=== PATIENT | female | born 1950 | race Caucasian/White ===

== ENCOUNTER → 2019-02-13 | Outpatient (CLI) | payer MEDICARE, OTHER ==
[~2019-02-13] MED LIST: ALIS150T PO; AMIT25 PO; ASPI325 PO; CIPR500 PO; DOC250 PO; DOXA1 PO; DOXA4 PO; EZET10-10 PO; EZET10-40 PO; FURO20 PO; FURO40 PO; HYDACE5 PO; IRBE150 PO; IRBE75 PO; LEVSOD100 PO; Lasix40 MG PO; METO100ER PO; METO50 PO; Prednisone20 MG PO; SPIR25 PO; TECTURNA; TRAM50 PO
[2019-02-13 19:23] LABS: Albumin/Globulin Ratio 0.6 (0.8-1.8); Bilirubin, Total 0.2 mg/dL (0.1-1.0); Bun/Creatinine Ratio 19.2 (12.0-20.0); Calcium, Blood 8.8 mg/dL (8.5-10.1); Creatinine, Blood 1.25 mg/dL (0.40-1.00); Globulin, Blood 4.7 g/dL (2.2-4.0); Potassium, Blood 4.1 mmol/L (3.5-5.5); Total Protein, Blood 7.7 g/dL (6.4-8.2)
== END ==
LOC: LAB SHORT 18:58 → LAB 18:58
DX: E11.9 Type 2 diabetes mellitus without complications (principal)
CPT/HCPCS: 80053

== ENCOUNTER → 2019-07-18 | Outpatient (CLI) | payer MEDICARE, OTHER ==
[2019-07-18 17:37] LABS: Protein, Urine Quantitative 195.8 mg/dL (0.0-11.9)
== END | disposition home or self-care (01) ==
LOC: LAB 15:34 → LAB SHORT 15:34
PROVIDERS: Internal Medicine
DX: N18.3 Chronic kidney disease, stage 3 (moderate) (principal)
CPT/HCPCS: 81050; 84156

== ENCOUNTER 2019-12-07 11:16 | Inpatient (IN) | payer MEDICARE, OTHER ==
[~2019-12-07] VITALS: Ht 154.9 cm; Wt 57.0 kg
[~2019-12-07 11:16] MED LIST changes: -AMIT25 PO; -EZET10-40 PO; -LEVSOD100 PO; -METO100ER PO
[2019-12-07 11:45] LABS: BASOPHILS ABSOLUTE AUTO 0.11 K/mm3 (0.00-0.23); BASOPHILS PERCENT AUTO 1 % (0-2); EOSINOPHILS ABSOLUTE AUTO 0.21 K/mm3 (0.00-0.68); EOSINOPHILS PERCENT AUTO 2 % (0-6); Hematocrit 25.1 % (33.0-51.0); Hemoglobin 7.4 g/dL (11.5-16.0); IMMATURE GRAN ABSOLUTE AUTO 0.06 K/mm3 (0.00-0.10); IMMATURE GRAN PERCENT AUTO 1 % (0-1); LYMPHOCYTES ABSOLUTE AUTO 1.36 K/mm3 (0.84-5.20); LYMPHOCYTES PERCENT AUTO 11 % (21-46); MONOCYTES ABSOLUTE AUTO 1.12 K/mm3 (0.16-1.47); MONOCYTES PERCENT AUTO 9 % (4-13); Mean Corpuscular HGB 23.9 pg (26.0-34.0); Mean Corpuscular HGB Conc 29.5 g/dL (31.5-36.5); Mean Corpuscular Volume 81 fL (80-100); Mean Platelet Volume 10.5 fL (9.1-12.4); NEUTROPHILS ABSOLUTE AUTO 10.15 K/mm3 (1.96-9.15); NEUTROPHILS PERCENT AUTO 78 % (41-73); Platelet Count 331 K/mm3 (150-400); RDW Coefficient Variation 15.9 % (11.7-14.2); RDW Standard Deviation 46.5 fL (35.1-46.3); White Blood Cell Count 13.01 K/mm3 (4.00-11.30)
[2019-12-07 12:10] LABS: Alanine Aminotransfer (ALT/SGP 17 U/L (12-78); Albumin, Blood 3.1 g/dL (3.4-5.0); Albumin/Globulin Ratio 0.7 (0.8-1.8); Alk Phos 89 U/L (50-136); Anion Gap 5 mmol/L (6-16); Aspartate Aminotrans (AST/SGOT 19 U/L (12-37); Bilirubin, Total 0.4 mg/dL (0.1-1.0); Blood Urea Nitrogen 33 mg/dL (8-24); Bun/Creatinine Ratio 19.6 (12.0-20.0); CO2, Blood 27 mmol/L (21-32); Calcium, Blood 9.1 mg/dL (8.5-10.1); Chloride, Blood 105 mmol/L (98-108); Creatinine, Blood 1.68 mg/dL (0.40-1.00); Globulin, Blood 4.7 g/dL (2.2-4.0); Glomerular Filtration Rate 32 (60-); Glucose, Blood 143 mg/dL (70-99); Potassium, Blood 4.2 mmol/L (3.5-5.5); Sodium, Blood 137 mmol/L (136-145); Total Protein, Blood 7.8 g/dL (6.4-8.2); Troponin I <0.015 ng/mL (0.000-0.040)
[2019-12-07] MEDS ORDERED: Prilosec Otc20 MG PO (12:44)
[2019-12-07] MEDS ORDERED: VALSARTAN320 MG PO (12:45)
[2019-12-07] MEDS ORDERED: AMLODIPINE BESYL5 MG PO (12:46)
[2019-12-07] MEDS ORDERED: METO100ER PO (12:46)
[2019-12-07] MEDS ORDERED: Amitriptyline100 MG PO (12:47)
[2019-12-07] MEDS ORDERED: HYDROCODONE-AC1 EAC5 PO (12:48)
[2019-12-07] MEDS ORDERED: LEVSOD100 PO (12:48)
[2019-12-07] MEDS ORDERED: NITROGLYCERIN TOP (12:50)
[2019-12-07] MEDS ORDERED: TORS10 PO (12:57)
[2019-12-07] MEDS ORDERED: EZETIMIBE-SIMV1 EAC4 PO (12:58)
[2019-12-07] MEDS ORDERED: BUPR150ER PO (13:00)
[2019-12-07] MEDS ORDERED: Citalopram HBr20 MG PO (13:01)
[2019-12-07 13:47] LABS: Percent Saturation 4.3 % (15.0-50.0)
[2019-12-07 13:54] LABS: Bilirubin, Direct 0.1 mg/dL (0.0-0.3); Bilirubin, Indirect 0.3 mg/dL (0.1-0.7); Bilirubin, Total 0.4 mg/dL (0.1-1.0)
[2019-12-07 14:59] LABS: PCO2 Arterial 39.8 mmHg (35-45); PO2 Arterial 68.7 mmHg (80-100); pH Blood Arterial 7.42 (7.35-7.45)
--- NOTE | 2019-12-07 17:14 | NUR ---
BIPAP STARTED BY RT. M SERIES PER DR. DIAZ.
--- NOTE | 2019-12-08 05:44 | NUR ---
SHIFT SUMMARY PT A&O X4. VSS. MONITOR SHOWS NSR, HR 60's. SPO2 > 92% ON 2L NC. PT C/O HEADACHE, MEDICATED PER PT REQUEST/EMAR X1 THIS SHIFT W/ PT RELIEF. NO EVENTS OVER NIGHT. WILL CONTINUE TO MONITOR AND PROVIDE CARE UNTIL REPORT OFF TO DAY SHIFT RN.
[2019-12-08 05:46] LABS: BASOPHILS ABSOLUTE AUTO 0.09 K/mm3 (0.00-0.23); BASOPHILS PERCENT AUTO 1 % (0-2); EOSINOPHILS PERCENT AUTO 4 % (0-6); Hematocrit 24.2 % (33.0-51.0); IMMATURE GRAN ABSOLUTE AUTO 0.03 K/mm3 (0.00-0.10); IMMATURE GRAN PERCENT AUTO 0 % (0-1); LYMPHOCYTES ABSOLUTE AUTO 1.65 K/mm3 (0.84-5.20); LYMPHOCYTES PERCENT AUTO 16 % (21-46); MONOCYTES ABSOLUTE AUTO 1.38 K/mm3 (0.16-1.47); MONOCYTES PERCENT AUTO 13 % (4-13); Mean Corpuscular HGB 23.8 pg (26.0-34.0); Mean Corpuscular HGB Conc 28.9 g/dL (31.5-36.5); Mean Corpuscular Volume 82 fL (80-100); Mean Platelet Volume 10.5 fL (9.1-12.4); NEUTROPHILS PERCENT AUTO 66 % (41-73); Platelet Count 294 K/mm3 (150-400); RDW Coefficient Variation 15.9 % (11.7-14.2); RDW Standard Deviation 47.7 fL (35.1-46.3); Red Blood Cell Count 2.94 M/mm3 (3.80-5.20); White Blood Cell Count 10.35 K/mm3 (4.00-11.30)
[2019-12-08 06:10] LABS: Anion Gap 5 mmol/L (6-16); Blood Urea Nitrogen 30 mg/dL (8-24); Bun/Creatinine Ratio 19.6 (12.0-20.0); CO2, Blood 29 mmol/L (21-32); Calcium, Blood 8.8 mg/dL (8.5-10.1); Chloride, Blood 106 mmol/L (98-108); Creatinine, Blood 1.53 mg/dL (0.40-1.00); Glomerular Filtration Rate 36 (60-); Glucose, Blood 90 mg/dL (70-99); Magnesium, Blood 2.5 mg/dL (1.6-2.4); Sodium, Blood 140 mmol/L (136-145)
[2019-12-08 06:12] LABS: Troponin I <0.015 ng/mL (0.000-0.040)
--- NOTE | 2019-12-08 07:31 | NUR ---
ASSUMED CARE AT 0700, REPORT FROM POLO LEON. RESTING IN BED IN LOW FOWLERS, 02 2L NC, NUNEZ CATH IN PLACE DRAINING CLEAR YELLOW URINE. VSS, PLAN OF CARE REVIEWED, WILL CONTINUE TO MONITOR.
[2019-12-08 09:12] LABS: Hemoglobin 7.2 g/dL (11.5-16.0)
[2019-12-08 15:07] LABS: Hematocrit 29.4 % (33.0-51.0); Hemoglobin 8.8 g/dL (11.5-16.0)
--- NOTE | 2019-12-08 18:30 | NUR ---
SHIFT SUMMARY: A/A/OX4 DURING SHIFT. 2L O2 VIA NC WITH CONTINUOUS BIOX. VSS, 1 UNIT PRBC INFUSED TODAY PER ORDERS, TOLERATED WELL. NUNEZ CATH IN PLACE, REPOSITIONED Q2 DURING SHIFT. EXCORATIONS ON BACK AND BUTTOX UNCHANGED FROM PREVIOUS SHIFT. WILL CONTINUE TO MONITOR UNTIL CHANGE OF SHIFT.
[2019-12-09 03:58] LABS: BASOPHILS PERCENT AUTO 1 % (0-2); EOSINOPHILS ABSOLUTE AUTO 0.51 K/mm3 (0.00-0.68); EOSINOPHILS PERCENT AUTO 5 % (0-6); Hematocrit 27.8 % (33.0-51.0); Hemoglobin 8.3 g/dL (11.5-16.0); IMMATURE GRAN ABSOLUTE AUTO 0.03 K/mm3 (0.00-0.10); IMMATURE GRAN PERCENT AUTO 0 % (0-1); LYMPHOCYTES ABSOLUTE AUTO 1.67 K/mm3 (0.84-5.20); LYMPHOCYTES PERCENT AUTO 16 % (21-46); MONOCYTES ABSOLUTE AUTO 1.37 K/mm3 (0.16-1.47); MONOCYTES PERCENT AUTO 13 % (4-13); Mean Corpuscular HGB Conc 29.9 g/dL (31.5-36.5); Mean Corpuscular Volume 84 fL (80-100); Mean Platelet Volume 10.5 fL (9.1-12.4); NEUTROPHILS ABSOLUTE AUTO 6.68 K/mm3 (1.96-9.15); NEUTROPHILS PERCENT AUTO 65 % (41-73); Platelet Count 277 K/mm3 (150-400); RDW Coefficient Variation 16.3 % (11.7-14.2); RDW Standard Deviation 49.4 fL (35.1-46.3); Red Blood Cell Count 3.32 M/mm3 (3.80-5.20); White Blood Cell Count 10.36 K/mm3 (4.00-11.30)
[2019-12-09 04:20] LABS: Bun/Creatinine Ratio 18.4 (12.0-20.0); Calcium, Blood 8.9 mg/dL (8.5-10.1); Creatinine, Blood 1.36 mg/dL (0.40-1.00); Magnesium, Blood 2.2 mg/dL (1.6-2.4); Potassium, Blood 3.7 mmol/L (3.5-5.5)
--- NOTE | 2019-12-09 04:53 | NUR ---
SHIFT SUMMARY Pt with no acute events overnight. VSS. Melo in place, patent and drained 700mls of clear yellow urine. Pt able to be titrated down from 2L NC to RA with oxygen saturations 93-95%. Denies SOB. No use of BIPAP this shift. Pt medicated once for pain with medication per emar. Plan for chest xray this AM and possible discharge. no acute changes from initial shift assessment. will continue to monitor. no acute concerns to communicate this shift.
[2019-12-09 14:19] LABS: Hematocrit 29.8 % (33.0-51.0)
--- NOTE | 2019-12-09 17:28 | NUR ---
SHIFT SUMMARY PT ALERT AND ORIENTED. VS STABLE. HR NSR. BP STABLE. PT INDEPENDENT IN THE ROOM. PLAN FOR PT TO HAVE ANGIOGRAM IN THE AM. PT TO BE NPO AT MIDNIGHT. NUNEZ CATHETER REMOVED THIS SHIFT AND PT HAS VOIDED MULTIPLE TIMES. WILL CONTINUE TO MONITOR AND REPORT TO ONCOMING RN. CALL LIGHT IN REACH.
--- NOTE | 2019-12-10 | NUR ---
NPO AT MIDNIGHT PER ORDERS IN ANTICIPATION FOR ANGIO TODAY
--- NOTE | 2019-12-10 02:02 | NUR ---
While sleeping, pt desaturating into low 80's, then will recover spontaneously within moments. 1 L NC placed d/t desaturation with sleep.
[2019-12-10 03:22] LABS: BASOPHILS ABSOLUTE AUTO 0.12 K/mm3 (0.00-0.23); BASOPHILS PERCENT AUTO 1 % (0-2); EOSINOPHILS ABSOLUTE AUTO 0.57 K/mm3 (0.00-0.68); EOSINOPHILS PERCENT AUTO 6 % (0-6); Hematocrit 29.6 % (33.0-51.0); Hemoglobin 8.8 g/dL (11.5-16.0); IMMATURE GRAN ABSOLUTE AUTO 0.05 K/mm3 (0.00-0.10); IMMATURE GRAN PERCENT AUTO 1 % (0-1); LYMPHOCYTES ABSOLUTE AUTO 1.49 K/mm3 (0.84-5.20); LYMPHOCYTES PERCENT AUTO 15 % (21-46); MONOCYTES ABSOLUTE AUTO 1.24 K/mm3 (0.16-1.47); MONOCYTES PERCENT AUTO 12 % (4-13); Mean Corpuscular HGB 24.7 pg (26.0-34.0); Mean Corpuscular HGB Conc 29.7 g/dL (31.5-36.5); Mean Corpuscular Volume 83 fL (80-100); Mean Platelet Volume 10.1 fL (9.1-12.4); NEUTROPHILS ABSOLUTE AUTO 6.59 K/mm3 (1.96-9.15); NEUTROPHILS PERCENT AUTO 66 % (41-73); NRBC ABSOLUTE 0.02 K/mm3 (0.00-0.02); NRBC Auto 0.2 /100 WBC (0.0-0.2); Platelet Count 284 K/mm3 (150-400); RDW Coefficient Variation 16.6 % (11.7-14.2); RDW Standard Deviation 49.2 fL (35.1-46.3); Red Blood Cell Count 3.56 M/mm3 (3.80-5.20); White Blood Cell Count 10.06 K/mm3 (4.00-11.30)
[2019-12-10 03:40] LABS: Bun/Creatinine Ratio 19.2 (12.0-20.0); Calcium, Blood 8.9 mg/dL (8.5-10.1); Creatinine, Blood 1.25 mg/dL (0.40-1.00); Potassium, Blood 3.8 mmol/L (3.5-5.5)
[2019-12-10 03:41] LABS: BASOPHILS PERCENT MAN 2 % (0-2); EOSINOPHILS PERCENT MAN 8 % (0-6); LYMPHOCYTES PERCENT MAN 13 % (21-46); METAMYELOCYTE PERCENT MAN 1 % (0-0); MONOCYTES PERCENT MAN 12 % (4-13); NEUTROPHILS ABSOLUTE MAN 6.43 K/mm3 (1.96-9.15); SEG NEUTROPHILS PERCENT MAN 64 % (41-73); TOTAL CELLS COUNTED 100
--- NOTE | 2019-12-10 05:17 | NUR ---
SHIFT SUMMARY Plan for possible angio today, pt has been NPO since midnight, no events on tele, VSS. Pt placed on 1L NC overnight for desaturations down ot 82% with spontaneous recovery. Pt mostly saturating at 94-96%. Denies SOB. Ambulating independantly to bathroom for voiding. pt able to express needs with call light, alert and oriented. No acute changes overnight, no changes from initial shift assessment, no concerns to communicate.
--- NOTE | 2019-12-10 08:47 | NUR ---
ASSUMED CARE PT ALERT AND ORIENTED. VS STABLE. O2 SATS REMAIN ABOVE 90% ON 2L NC. HR NSR. PT DENIES ANY PAIN. DR. HENDERSON IN EARLY THIS AM TO CONSENT PT FOR PROCEDURE. PT GIVEN AM MEDICATIONS AND THEN TAKEN TO [facility]. WILL AWAIT RETURN.
[2019-12-10] MEDS ORDERED: METO25 PO (11:27)
[2019-12-10] MEDS ORDERED: ATOR20 PO (11:28)
[2019-12-10] MEDS ORDERED: FURO40 PO (11:28)
[2019-12-10] MEDS ORDERED: FERSU300 PO (11:29)
--- NOTE | 2019-12-10 17:17 | NUR ---
DISCHARGE NOTE PT ALERT AND ORIENTED. VS STABLE. PT DENIES ANY PAIN. RIGHT RADIAL SITE WITH TR BAND REMOVED AND SOME SLIGHT OOZING NOTED AFTER TR BAND REMOVED. ARM ELEVATED ON PILLOW AND TEGADERM PLACED. PT ANXIOUS TO LEAVE BECAUSE SHE STATES HER DOG GOT OUT. PT EDUCATED ON RESTRICTIONS TO RIGHT ARM. PT ENCOURAGED TO STAY FOR MONITORING LONGER DUE TO OOZING AT THE SITE. PT INSISTS ON LEAVING AND STATES SHE WILL NOT STAY. DISCHARGE INSTRUCTIONS PROVIDED. PT EDUCATED ON NEW MEDICATIONS. ALL QUESTIONS ANSWERED. PT TAKEN OUT BY SANDIE.
== END 2019-12-10 17:07 | disposition home or self-care (01) | DRG 286 ==
LOC: ER 11:16 → PCU 13:24
PROVIDERS: Emergency Medicine; Internal Medicine; ADMIT Internal Medicine
PROC: 30233N1 Transfusion of Nonautologous Red Blood Cells into Peripheral Vein, Percutaneous Approach (ICD-10-PCS; 2019-12-08)
PROC: 4A023N8 Measurement of Cardiac Sampling and Pressure, Bilateral, Percutaneous Approach (ICD-10-PCS; principal; 2019-12-10)
PROC: B2111ZZ Fluoroscopy of Multiple Coronary Arteries using Low Osmolar Contrast (ICD-10-PCS; 2019-12-10)
DX: I13.0 Hypertensive heart and chronic kidney disease with heart failure and stage 1 through stage 4 chronic kidney disease, or unspecified chronic kidney disease (principal); I50.31 Acute diastolic (congestive) heart failure; N17.9 Acute kidney failure, unspecified; E11.22 Type 2 diabetes mellitus with diabetic chronic kidney disease; N18.3 Chronic kidney disease, stage 3 (moderate); Z79.4 Long term (current) use of insulin; D63.1 Anemia in chronic kidney disease; E03.9 Hypothyroidism, unspecified; E78.5 Hyperlipidemia, unspecified; F17.210 Nicotine dependence, cigarettes, uncomplicated; D50.9 Iron deficiency anemia, unspecified; I34.0 Nonrheumatic mitral (valve) insufficiency; I25.10 Atherosclerotic heart disease of native coronary artery without angina pectoris
CPT/HCPCS: 36415; 36600; 51702; 71045; 76937; 80048; 80053; 82247; 82248; 82607; 82728; 82746; 82803; 82947; 83010; 83540; 83550; 83615; 83735; 83880; 84443; 84484; 85014; 85018; 85025; 85060; 86850; 86900; 86901; 86923; 93005; 93010; 93460; 94660; 94664; 94667; 94760; 94762; 96374-59; 98960; 99152; 99285-25; A9270; A9270-GY; C1769; C1894; J1644; J1940; J2250; J2916; J3010; J7030; J7050; P9016; Q9967; U0002

== ENCOUNTER → 2020-12-31 | Outpatient (CLI) | payer MEDICARE, OTHER ==
[~2020-12-31] MED LIST changes: +AMLODIPINE BESYL5 MG PO; +ATOR20 PO; +Amitriptyline100 MG PO; +BUPR150ER PO; +Citalopram HBr20 MG PO; +EZETIMIBE-SIMV1 EAC4 PO; +FERSU300 PO; +HYDROCODONE-AC1 EAC5 PO; +LEVSOD100 PO; +METO100ER PO; +METO25 PO; +NITROGLYCERIN TOP; +Prilosec Otc20 MG PO; +TORS10 PO; +VALSARTAN320 MG PO
[2020-12-31 20:46] LABS: Albumin, Blood 3.2 g/dL (3.4-5.0); Albumin/Globulin Ratio 0.7 (0.8-1.8); Bilirubin, Total 0.2 mg/dL (0.1-1.0); Bun/Creatinine Ratio 24.6 (12.0-20.0); Calcium, Blood 8.8 mg/dL (8.5-10.1); Creatinine, Blood 1.75 mg/dL (0.40-1.00); Free Thyroxine 0.81 ng/dL (0.70-1.60); Globulin, Blood 4.7 g/dL (2.2-4.0); Total Protein, Blood 7.9 g/dL (6.4-8.2)
[2020-12-31 20:51] LABS: Thyroid Stimulating Hormone 7.22 uIU/mL (0.360-4.800)
== END | disposition home or self-care (01) ==
LOC: LAB SHORT 19:03 → LAB 19:03
PROVIDERS: Nurse Practitioner
DX: E03.9 Hypothyroidism, unspecified (principal); I10 Essential (primary) hypertension
CPT/HCPCS: 80053; 84439; 84443

== ENCOUNTER 2021-03-15 16:10 | Emergency (ER) | payer MEDICARE, OTHER ==
[~2021-03-15] VITALS: Ht 157.5 cm; Wt 58.5 kg
[2021-03-15 17:05] LABS: BASOPHILS ABSOLUTE AUTO 0.07 K/mm3 (0.00-0.23); BASOPHILS PERCENT AUTO 1 % (0-2); EOSINOPHILS ABSOLUTE AUTO 0.31 K/mm3 (0.00-0.68); EOSINOPHILS PERCENT AUTO 4 % (0-6); Hematocrit 23.9 % (33.0-51.0); Hemoglobin 6.9 g/dL (11.5-16.0); IMMATURE GRAN ABSOLUTE AUTO 0.04 K/mm3 (0.00-0.10); IMMATURE GRAN PERCENT AUTO 1 % (0-1); LYMPHOCYTES ABSOLUTE AUTO 0.99 K/mm3 (0.84-5.20); LYMPHOCYTES PERCENT AUTO 12 % (21-46); MONOCYTES ABSOLUTE AUTO 0.86 K/mm3 (0.16-1.47); MONOCYTES PERCENT AUTO 10 % (4-13); Mean Corpuscular HGB 22.6 pg (26.0-34.0); Mean Corpuscular HGB Conc 28.9 g/dL (31.5-36.5); Mean Corpuscular Volume 78 fL (80-100); NEUTROPHILS ABSOLUTE AUTO 6.22 K/mm3 (1.96-9.15); NEUTROPHILS PERCENT AUTO 73 % (41-73); Platelet Count 237 K/mm3 (150-400); RDW Coefficient Variation 18.2 % (11.7-14.2); RDW Standard Deviation 51.2 fL (35.1-46.3); Red Blood Cell Count 3.05 M/mm3 (3.80-5.20); White Blood Cell Count 8.49 K/mm3 (4.00-11.30)
[2021-03-15 17:24] LABS: Albumin, Blood 2.5 g/dL (3.4-5.0); Albumin/Globulin Ratio 0.5 (0.8-1.8); Bilirubin, Total 0.2 mg/dL (0.1-1.0); Bun/Creatinine Ratio 25.2 (12.0-20.0); Calcium, Blood 8.6 mg/dL (8.5-10.1); Creatinine, Blood 1.39 mg/dL (0.40-1.00); Globulin, Blood 4.7 g/dL (2.2-4.0); Potassium, Blood 4.5 mmol/L (3.5-5.5); Total Protein, Blood 7.2 g/dL (6.4-8.2)
== END 2021-03-15 21:55 | disposition home or self-care (01) ==
LOC: ER 16:10
PROVIDERS: Physician Assistant
DX: D50.9 Iron deficiency anemia, unspecified (principal); I13.0 Hypertensive heart and chronic kidney disease with heart failure and stage 1 through stage 4 chronic kidney disease, or unspecified chronic kidney disease; E11.22 Type 2 diabetes mellitus with diabetic chronic kidney disease; I50.9 Heart failure, unspecified; N18.30 Chronic kidney disease, stage 3 unspecified; I27.20 Pulmonary hypertension, unspecified; E03.9 Hypothyroidism, unspecified; E78.5 Hyperlipidemia, unspecified; Z79.899 Other long term (current) drug therapy
CPT/HCPCS: 36415; 80053; 83540; 83550; 85025; 86850; 86900; 86901; 86923; 99283; J7030; P9016

== ENCOUNTER → 2021-04-08 | Outpatient (CLI) | payer MEDICARE, OTHER ==
[~2021-04-08] MED LIST changes: +CEPH500 PO
[2021-04-08 11:53] LABS: BASOPHILS ABSOLUTE AUTO 0.11 K/mm3 (0.00-0.23); BASOPHILS PERCENT AUTO 1 % (0-2); EOSINOPHILS ABSOLUTE AUTO 0.19 K/mm3 (0.00-0.68); EOSINOPHILS PERCENT AUTO 2 % (0-6); Hematocrit 26.2 % (33.0-51.0); Hemoglobin 7.9 g/dL (11.5-16.0); IMMATURE GRAN ABSOLUTE AUTO 0.02 K/mm3 (0.00-0.10); IMMATURE GRAN PERCENT AUTO 0 % (0-1); LYMPHOCYTES PERCENT AUTO 9 % (21-46); MONOCYTES ABSOLUTE AUTO 0.76 K/mm3 (0.16-1.47); MONOCYTES PERCENT AUTO 9 % (4-13); Mean Corpuscular HGB 23.9 pg (26.0-34.0); Mean Corpuscular HGB Conc 30.2 g/dL (31.5-36.5); Mean Corpuscular Volume 79 fL (80-100); Mean Platelet Volume 10.2 fL (9.1-12.4); NEUTROPHILS PERCENT AUTO 78 % (41-73); Platelet Count 234 K/mm3 (150-400); RDW Coefficient Variation 19.7 % (11.7-14.2); Red Blood Cell Count 3.31 M/mm3 (3.80-5.20); White Blood Cell Count 8.48 K/mm3 (4.00-11.30)
[2021-04-08 12:03] LABS: Bun/Creatinine Ratio 22.7 (12.0-20.0); Creatinine, Blood 1.72 mg/dL (0.40-1.00); Potassium, Blood 4.5 mmol/L (3.5-5.5)
== END | disposition home or self-care (01) ==
LOC: LAB SHORT 11:43 → LAB 11:43
PROVIDERS: Nurse Practitioner Family
DX: D64.9 Anemia, unspecified (principal); R73.03 Prediabetes
CPT/HCPCS: 80048; 83036; 85025

== ENCOUNTER 2021-07-21 14:52 | Day surgery (SDC) | payer MEDICARE, OTHER | END 2021-07-22 02:27 | disposition home or self-care (01) | LOC: WOUND 14:52 | DX: S61.401A Unspecified open wound of right hand, initial encounter (principal); L98.492 Non-pressure chronic ulcer of skin of other sites with fat layer exposed; F17.210 Nicotine dependence, cigarettes, uncomplicated; I48.91 Unspecified atrial fibrillation; I50.9 Heart failure, unspecified; I25.10 Atherosclerotic heart disease of native coronary artery without angina pectoris; N18.6 End stage renal disease; X58.XXXA Exposure to other specified factors, initial encounter; Z95.2 Presence of prosthetic heart valve; Z95.0 Presence of cardiac pacemaker | CPT/HCPCS: A9270; G0463 ==

== ENCOUNTER 2021-07-28 00:44 | Day surgery (SDC) | payer MEDICARE, OTHER | END 2021-07-28 23:36 | disposition home or self-care (01) | LOC: WOUND 00:44 | DX: S61.401A Unspecified open wound of right hand, initial encounter (principal); X58.XXXA Exposure to other specified factors, initial encounter | CPT/HCPCS: 11102 ==

== ENCOUNTER 2021-08-03 13:25 | Day surgery (SDC) | payer MEDICARE, OTHER | END 2021-08-03 22:39 | disposition home or self-care (01) | LOC: WOUND 13:25 | DX: S61.401A Unspecified open wound of right hand, initial encounter (principal); D50.9 Iron deficiency anemia, unspecified; R77.0 Abnormality of albumin; R63.4 Abnormal weight loss; X58.XXXA Exposure to other specified factors, initial encounter | CPT/HCPCS: G0463 ==

== ENCOUNTER 2021-08-17 00:19 | Day surgery (SDC) | payer MEDICARE, OTHER | END 2021-08-17 22:58 | disposition home or self-care (01) | LOC: WOUND 00:19 | DX: S61.401A Unspecified open wound of right hand, initial encounter (principal); S61.402A Unspecified open wound of left hand, initial encounter; L08.9 Local infection of the skin and subcutaneous tissue, unspecified; D50.9 Iron deficiency anemia, unspecified; R77.0 Abnormality of albumin; R63.4 Abnormal weight loss; Z68.21 Body mass index [BMI] 21.0-21.9, adult | CPT/HCPCS: A9270; G0463 ==

== ENCOUNTER 2021-08-27 00:41 | Day surgery (SDC) | payer MEDICARE, OTHER | END 2021-08-27 23:59 | disposition home or self-care (01) | LOC: WOUND 00:41 | DX: S61.401A Unspecified open wound of right hand, initial encounter (principal); S61.402A Unspecified open wound of left hand, initial encounter; D50.9 Iron deficiency anemia, unspecified; R63.4 Abnormal weight loss; R77.0 Abnormality of albumin; Z68.21 Body mass index [BMI] 21.0-21.9, adult; X58.XXXA Exposure to other specified factors, initial encounter | CPT/HCPCS: A9270; G0463 ==

== ENCOUNTER 2021-09-03 02:41 | Day surgery (SDC) | payer MEDICARE, OTHER | END 2021-09-03 23:30 | disposition home or self-care (01) | LOC: WOUND 02:41 | DX: S61.401A Unspecified open wound of right hand, initial encounter (principal); S61.402A Unspecified open wound of left hand, initial encounter; D50.9 Iron deficiency anemia, unspecified; R77.0 Abnormality of albumin; R63.4 Abnormal weight loss | CPT/HCPCS: A9270; G0463 ==

== ENCOUNTER → 2021-09-15 | Outpatient (CLI) | payer MEDICARE, OTHER ==
[2021-09-16 08:52] LABS: BASOPHILS ABSOLUTE AUTO 0.12 K/mm3 (0.00-0.23); BASOPHILS PERCENT AUTO 1 % (0-2); EOSINOPHILS ABSOLUTE AUTO 0.48 K/mm3 (0.00-0.68); EOSINOPHILS PERCENT AUTO 5 % (0-6); Hematocrit 24.4 % (33.0-51.0); Hemoglobin 6.8 g/dL (11.5-16.0); IMMATURE GRAN ABSOLUTE AUTO 0.04 K/mm3 (0.00-0.10); IMMATURE GRAN PERCENT AUTO 0 % (0-1); LYMPHOCYTES ABSOLUTE AUTO 1.54 K/mm3 (0.84-5.20); LYMPHOCYTES PERCENT AUTO 15 % (21-46); MONOCYTES PERCENT AUTO 9 % (4-13); Mean Corpuscular HGB 26.9 pg (26.0-34.0); Mean Corpuscular HGB Conc 27.9 g/dL (31.5-36.5); Mean Corpuscular Volume 96 fL (80-100); NEUTROPHILS ABSOLUTE AUTO 7.39 K/mm3 (1.96-9.15); NEUTROPHILS PERCENT AUTO 71 % (41-73); Platelet Count 392 K/mm3 (150-400); RDW Coefficient Variation 15.9 % (11.7-14.2); Red Blood Cell Count 2.53 M/mm3 (3.80-5.20); White Blood Cell Count 10.47 K/mm3 (4.00-11.30)
[2021-09-16 09:12] LABS: Albumin, Blood 2.8 g/dL (3.4-5.0); Albumin/Globulin Ratio 0.6 (0.8-1.8); Bilirubin, Total 0.1 mg/dL (0.1-1.0); Bun/Creatinine Ratio 30.3 (12.0-20.0); Calcium, Blood 8.9 mg/dL (8.5-10.1); Creatinine, Blood 1.52 mg/dL (0.40-1.00); Free Thyroxine 1.01 ng/dL (0.70-1.60); Globulin, Blood 4.7 g/dL (2.2-4.0); Potassium, Blood 4.9 mmol/L (3.5-5.5); Thyroid Stimulating Hormone 4.78 uIU/mL (0.360-4.800); Total Protein, Blood 7.5 g/dL (6.4-8.2)
[2021-09-17 07:11] LABS: HIV AB/P24 AG SCREEN Non Reactive (Non Reactive)
== END | disposition home or self-care (01) ==
LOC: LAB SHORT 19:30 → LAB 19:30
PROVIDERS: Nurse Practitioner
DX: Z11.4 Encounter for screening for human immunodeficiency virus [HIV] (principal); R53.1 Weakness; D50.9 Iron deficiency anemia, unspecified; R63.4 Abnormal weight loss; R53.83 Other fatigue
CPT/HCPCS: 80053; 84439; 84443; 85025; 85651; 87389

== ENCOUNTER 2021-09-17 19:40 | Emergency (ER) | payer MEDICARE, OTHER ==
[~2021-09-17] VITALS: Ht 157.5 cm; Wt 47.6 kg
[2021-09-17 20:45] LABS: Calcium, Ionized (POC) 1.23 mmol/L (1.10-1.46); Chloride (POC) 111 mmol/L (98-108); Creatinine (POC) 1.5 mg/dL (0.6-1.0); Glucose (ISTAT POC) 84 mg/dL (70-99); Hemoglobin (POC) 7.8 g/dL (12.0-16.0); Potassium (POC) 4.6 mmol/L (3.5-5.5); Sodium (POC) 143 mmol/L (135-148); Total CO2 (POC) 22 mmol/L (21-32)
== END 2021-09-17 21:00 | disposition home or self-care (01) ==
LOC: ER 19:40
PROVIDERS: Emergency Medicine
DX: T18.128A Food in esophagus causing other injury, initial encounter (principal); D64.9 Anemia, unspecified; I13.0 Hypertensive heart and chronic kidney disease with heart failure and stage 1 through stage 4 chronic kidney disease, or unspecified chronic kidney disease; E11.22 Type 2 diabetes mellitus with diabetic chronic kidney disease; N18.30 Chronic kidney disease, stage 3 unspecified; I50.30 Unspecified diastolic (congestive) heart failure; E78.5 Hyperlipidemia, unspecified; E03.9 Hypothyroidism, unspecified; F17.210 Nicotine dependence, cigarettes, uncomplicated
CPT/HCPCS: 80047; 85014; 96374; 96375; 99283-25; J1610; J2405; J3010

== ENCOUNTER 2021-11-08 09:05 | Day surgery (SDC) | payer MEDICARE, OTHER ==
[~2021-11-08] VITALS: Ht 157.5 cm; Wt 46.6 kg
--- NOTE | 2021-11-08 11:47 | NUR ---
11/08/21 Kadi Ireland LATE ENTRY PATIENT SLOW TO WAKE. WILL CONTIUNE RECOVERY IN PTS PRE-OP ROOM.
--- NOTE | 2021-11-08 11:49 | NUR ---
11/08/21 1149 Kadi Flores PT CONTINUES TO SLEEP, DOES NOT RESPOND TO VOICE. VSS. WILL CONTINUE TO MONITOR.
== END 2021-11-08 12:34 | disposition home or self-care (01) ==
LOC: ORSCSDS 09:05 → ORD 10:00 → ORSCMMR 10:00 → ORSCSDS 10:00
PROVIDERS: Internal Medicine Gastroenterology
PROC: 0DB98ZX Excision of Duodenum, Via Natural or Artificial Opening Endoscopic, Diagnostic (ICD-10-PCS; principal; 2021-11-08 10:00)
PROC: 0DBK8ZX Excision of Ascending Colon, Via Natural or Artificial Opening Endoscopic, Diagnostic (ICD-10-PCS; principal; 2021-11-08 10:00)
PROC: 0DB78ZX Excision of Stomach, Pylorus, Via Natural or Artificial Opening Endoscopic, Diagnostic (ICD-10-PCS; principal; 2021-11-08 10:00)
DX: K62.5 Hemorrhage of anus and rectum (principal); R13.14 Dysphagia, pharyngoesophageal phase; D46.4 Refractory anemia, unspecified; D12.2 Benign neoplasm of ascending colon; K21.9 Gastro-esophageal reflux disease without esophagitis; K29.70 Gastritis, unspecified, without bleeding; K57.30 Diverticulosis of large intestine without perforation or abscess without bleeding; F17.210 Nicotine dependence, cigarettes, uncomplicated; I10 Essential (primary) hypertension; E11.22 Type 2 diabetes mellitus with diabetic chronic kidney disease; N18.30 Chronic kidney disease, stage 3 unspecified; E03.9 Hypothyroidism, unspecified; E78.5 Hyperlipidemia, unspecified; I48.91 Unspecified atrial fibrillation; I50.9 Heart failure, unspecified; Z79.899 Other long term (current) drug therapy
CPT/HCPCS: 88305; 88341; 88342; A9270; J2250; J2405; J3010; J7120

== ENCOUNTER 2021-12-13 16:14 | Inpatient (IN) | payer MEDICARE, OTHER ==
[~2021-12-13] VITALS: Ht 157.5 cm; Wt 45.1 kg
[2021-12-13 17:14] LABS: BASOPHILS ABSOLUTE AUTO 0.09 K/mm3 (0.00-0.23); BASOPHILS PERCENT AUTO 1 % (0-2); EOSINOPHILS ABSOLUTE AUTO 0.28 K/mm3 (0.00-0.68); EOSINOPHILS PERCENT AUTO 3 % (0-6); Hematocrit 20.9 % (33.0-51.0); Hemoglobin 6.7 g/dL (11.5-16.0); IMMATURE GRAN ABSOLUTE AUTO 0.03 K/mm3 (0.00-0.10); IMMATURE GRAN PERCENT AUTO 0 % (0-1); LYMPHOCYTES ABSOLUTE AUTO 0.81 K/mm3 (0.84-5.20); LYMPHOCYTES PERCENT AUTO 10 % (21-46); MONOCYTES ABSOLUTE AUTO 0.71 K/mm3 (0.16-1.47); MONOCYTES PERCENT AUTO 9 % (4-13); Mean Corpuscular HGB 27.7 pg (26.0-34.0); Mean Corpuscular HGB Conc 32.1 g/dL (31.5-36.5); Mean Corpuscular Volume 86 fL (80-100); Mean Platelet Volume 9.2 fL (9.1-12.4); NEUTROPHILS ABSOLUTE AUTO 6.22 K/mm3 (1.96-9.15); NEUTROPHILS PERCENT AUTO 76 % (41-73); Platelet Count 248 K/mm3 (150-400); RDW Standard Deviation 47.7 fL (35.1-46.3); Red Blood Cell Count 2.42 M/mm3 (3.80-5.20); White Blood Cell Count 8.14 K/mm3 (4.00-11.30)
[2021-12-13 17:38] LABS: Albumin, Blood 2.4 g/dL (3.4-5.0); Albumin/Globulin Ratio 0.5 (0.8-1.8); Bilirubin, Total 0.1 mg/dL (0.1-1.0); Bun/Creatinine Ratio 28.6 (12.0-20.0); Calcium, Blood 8.8 mg/dL (8.5-10.1); Creatinine, Blood 3.85 mg/dL (0.40-1.00); Potassium, Blood 6.4 mmol/L (3.5-5.5); Total Protein, Blood 7.4 g/dL (6.4-8.2)
--- NOTE | 2021-12-14 01:23 | NUR ---
CARE ASSUMPTION: PATIENT ARRIVED BY GURHALIMA WITH BLOOD PRODUCT INFUSING. PATIENT WALKED TO TOILET WITH STANDBY ASSIST. PATIENT DENIES SOB, CHEST PAIN, OR DIZZINESS. VS WNL ON RA. SKIN C/D/I. DAUGHTER DANIEL AT BEDSIDE IS HEALTHCARE PROXY AND CONTACT INFO ON BOARD. PATIENT'S MAIN COMPLAINT IS THE SORES ON HER MIDDLE KNUCKLE ON EACH HAND. PATIENT DENIES HX OF DIABETES. ADMISSION HX AND MED RECONCILIATION IS COMPLETE. BED LOW WITH CALL LIGHT IN REACH.
[2021-12-14 04:27] LABS: Hemoglobin 7.9 g/dL (11.5-16.0); Mean Corpuscular HGB 27.4 pg (26.0-34.0); Mean Corpuscular HGB Conc 31.6 g/dL (31.5-36.5); Mean Corpuscular Volume 87 fL (80-100); Mean Platelet Volume 9.3 fL (9.1-12.4); Platelet Count 221 K/mm3 (150-400); RDW Coefficient Variation 15.2 % (11.7-14.2); RDW Standard Deviation 48.8 fL (35.1-46.3); Red Blood Cell Count 2.88 M/mm3 (3.80-5.20); White Blood Cell Count 6.91 K/mm3 (4.00-11.30)
[2021-12-14 04:50] LABS: Bun/Creatinine Ratio 30.8 (12.0-20.0); Calcium, Blood 9.1 mg/dL (8.5-10.1); Creatinine, Blood 3.44 mg/dL (0.40-1.00)
--- NOTE | 2021-12-14 05:17 | NUR ---
CRITICAL VALUE NOTIFICATION: POTASSIUM 6.[address] PAYNE NOTIFIED AND NEW ORDERS RECEIVED. NO CHANGE IN PATIENT AFFECT.
--- NOTE | 2021-12-14 06:15 | NUR ---
SHIFT SUMMARY: PATIENT VSS T/O NIGHT, NO SOB OR CHEST PAIN. PACER PACING AT 60 BPM. ELEVATED POTASSIUM THIS AM WITH NEW ORDERS RECEIVED - MEDICATING PER EMAR. PATIENT'S MAIN COMPLAINT CONTINUES TO BE HER HANDS THAT ARE "A MYSTERY" NO ONE HAS BEEN ABLE TO IDENTIFY WHY SHE HAS THE PAINS SHE HAS. HGB UP TO 7.9 FROM 6.7 AFTER 1 UNIT PRBCS. PATIENT RESTING IN BED WITH IV MEDICATIONS INFUSING. BED LOW WITH CALL LIGHT IN REACH. WILL CONTINUE TO MONITOR AND REPORT TO ONCOMING RN.
[2021-12-14 10:21] LABS: Calcium, Blood 9.4 mg/dL (8.5-10.1); Creatinine, Blood 3.26 mg/dL (0.40-1.00); Potassium, Blood 5.2 mmol/L (3.5-5.5)
--- NOTE | 2021-12-14 13:00 | NUR ---
Call to Dr. Barron to clarify H & H orders, and also to ask if the 1000 blood draw could be used in place of the requested 1200 pm H&H order.
[2021-12-14 15:18] LABS: Bun/Creatinine Ratio 31.1 (12.0-20.0); Creatinine, Blood 3.09 mg/dL (0.40-1.00)
--- NOTE | 2021-12-14 16:24 | NUR ---
Assisted back to bed from recliner, at her request. States that her "butt is so bony" that it is sore after sitting up in the chair. She is still receiving IV infusion, and needs assistance to avoid tangling or accidentally dislodging her IV. Declined offer to assist her to the bathroom at this time.
--- NOTE | 2021-12-14 20:30 | NUR ---
CARE ASSUMPTION: PATIENT RESTING IN BED. DISCONNECTED LR INFUSION IT HAD COMPLETED. PATIENT'S HANDS STILL CAUSING DISCOMFORT, BUT LESS SWOLLEN THAN EARLIER. VSS WNL FOR PATIENT ON RA. BED LOW WITH CALL LIGHT IN REACH.
--- NOTE | 2021-12-15 01:54 | NUR ---
CALL TO MD RE: PATIENT'S PAIN MEDICATION. NEW ORDERS ENTERED. WILL MEDICATE PER EMAR AND EDUCATE PATIENT ON NEW PAIN MEDICATIONS THAT DIFFER FROM PATIENT REQUEST/HOME USE.
[2021-12-15 05:02] LABS: Hematocrit 23.9 % (33.0-51.0); Hemoglobin 7.8 g/dL (11.5-16.0)
[2021-12-15 05:26] LABS: Thyroid Stimulating Hormone 2.96 uIU/mL (0.360-4.800)
[2021-12-15 05:43] LABS: Bun/Creatinine Ratio 33.6 (12.0-20.0); Calcium, Blood 8.8 mg/dL (8.5-10.1); Creatinine, Blood 2.8 mg/dL (0.40-1.00)
--- NOTE | 2021-12-15 07:59 | NUR ---
0730 Blood sugar check qas 65. Pt was given yogurt, and coffee with cream.
--- NOTE | 2021-12-15 10:05 | NUR ---
Ambulatory to the bathroom to void. IVF started, and pt had sponge bath while sitting up in chair, at the sink, independently. She is now sitting up in recliner.
--- NOTE | 2021-12-15 15:07 | NUR ---
GIVEN a sandwich and cheese, per her request.
--- NOTE | 2021-12-15 16:08 | NUR ---
Pt ate a snack at 1500, stated that she didn't really like her lunch. CBG at this time 78. Ambulatory to the bathroom without assistance to void. ANURAG sanchez placed on her legs.
[2021-12-15 16:48] LABS: Bun/Creatinine Ratio 36.2 (12.0-20.0); Calcium, Blood 8.8 mg/dL (8.5-10.1); Creatinine, Blood 2.43 mg/dL (0.40-1.00); Potassium, Blood 5.4 mmol/L (3.5-5.5)
--- NOTE | 2021-12-15 17:16 | NUR ---
Pt has been alert, oriented, and cheerful today. Independently ambulatory to the bathroom when not attached to IV pump. Appetite has been fair. Blood sugars low all day until this afternoon. She has been eating small snacks throughout the day, and asymptomatic with her low blood sugar. SHe has difficulty eating because of lack of appetite, but denies any nausea or abdominal discomfort. She had more hand pain today, and had relief after receiving one [place] tablet this afternoon.
--- NOTE | 2021-12-16 04:15 | NUR ---
SHIFT SUMMARY PT RESTED WELL THROUGH THE NIGHT. ALERT AND ORIENTED, ABLE TO MAKE NEEDS KNOWN. COOPERATIVE [facility] PLAN OF CARE. SATS >95% ON ROOM AIR. NO TELE STATUS, NO C/O CHEST PAIN. CBG 119 AND 72 THORUGHOUT NIGHT. SNACKS AND BEVERAGES GIVEN. ALL VSS. C/O PAIN IN BILATERAL HANDS - SEE EMAR. VOIDING INDEPENDENTLY IN ROOM. NO OTHER NEEDS AT THIS TIME. CALL LIGHT WITHIN REACH, BED IN LOWEST POSITION. WILL CONTINUE TO MONITOR.
[2021-12-16 05:23] LABS: Hematocrit 23.1 % (33.0-51.0); Hemoglobin 7.4 g/dL (11.5-16.0)
[2021-12-16 05:46] LABS: Bun/Creatinine Ratio 35.6 (12.0-20.0); Calcium, Blood 8.7 mg/dL (8.5-10.1); Creatinine, Blood 2.39 mg/dL (0.40-1.00); Potassium, Blood 5.2 mmol/L (3.5-5.5)
--- NOTE | 2021-12-16 07:23 | NUR ---
States that she slept well last night. States she is having a little bit of pain in her hands, but not too bad. Declines any pain medication at this time. Blood sugars have not bee low last night, per noc shift report. This morning her CBG is 71.
== END 2021-12-16 14:30 | disposition home or self-care (01) | DRG 683 ==
LOC: ER 16:14 → PCU 22:06 → ER 12-14 00:16 → PCU 12-15 10:20
PROVIDERS: Family Medicine; Physician Assistant; ADMIT Internal Medicine
PROC: 30233N1 Transfusion of Nonautologous Red Blood Cells into Peripheral Vein, Percutaneous Approach (ICD-10-PCS; principal; 2021-12-13)
DX: N17.9 Acute kidney failure, unspecified (principal); E44.0 Moderate protein-calorie malnutrition; E87.1 Hypo-osmolality and hyponatremia; I13.0 Hypertensive heart and chronic kidney disease with heart failure and stage 1 through stage 4 chronic kidney disease, or unspecified chronic kidney disease; I50.32 Chronic diastolic (congestive) heart failure; Z68.1 Body mass index [BMI] 19.9 or less, adult; E87.5 Hyperkalemia; N18.32 Chronic kidney disease, stage 3b; E11.22 Type 2 diabetes mellitus with diabetic chronic kidney disease; D63.1 Anemia in chronic kidney disease; E78.5 Hyperlipidemia, unspecified; K29.70 Gastritis, unspecified, without bleeding; K57.30 Diverticulosis of large intestine without perforation or abscess without bleeding; E03.9 Hypothyroidism, unspecified; I34.0 Nonrheumatic mitral (valve) insufficiency; E11.649 Type 2 diabetes mellitus with hypoglycemia without coma; Z87.891 Personal history of nicotine dependence; Z95.4 Presence of other heart-valve replacement; Z98.890 Other specified postprocedural states; Z79.899 Other long term (current) drug therapy
CPT/HCPCS: 36415; 36430; 71045; 80048; 80053; 82947; 83690; 84132; 84443; 85014; 85018; 85025; 85027; 86850; 86900; 86901; 86923; 93005; 93010; 94644; 94664; 94760; 94762; 96365; 96366; 97116; 97162; 97166; 97535; 99285-25; A9270; J0610; J1815; J7030; J7060; J7120; J7799; P9016

== ENCOUNTER → 2021-12-22 | Outpatient (CLI) | payer MEDICARE, OTHER ==
[2021-12-22 15:52] LABS: Bun/Creatinine Ratio 28.1 (12.0-20.0); Creatinine, Blood 1.85 mg/dL (0.40-1.00); Potassium, Blood 4.6 mmol/L (3.5-5.5)
== END ==
LOC: LAB SHORT 15:27
PROVIDERS: Family Medicine
DX: N17.9 Acute kidney failure, unspecified (principal)
CPT/HCPCS: 80048

== ENCOUNTER → 2022-01-25 | Outpatient (CLI) | payer MEDICARE, OTHER | END | disposition home or self-care (01) | LOC: LAB 16:22 → LAB SHORT 16:22 | DX: S61.401S Unspecified open wound of right hand, sequela (principal); S61.402S Unspecified open wound of left hand, sequela | CPT/HCPCS: 87070; 87075; 87077; 87147; 87186; 87205 ==

== ENCOUNTER → 2022-02-09 | Outpatient (CLI) | payer MEDICARE, OTHER ==
[2022-02-09 18:56] LABS: BASOPHILS ABSOLUTE AUTO 0.08 K/mm3 (0.00-0.23); BASOPHILS PERCENT AUTO 1 % (0-2); EOSINOPHILS ABSOLUTE AUTO 0.22 K/mm3 (0.00-0.68); EOSINOPHILS PERCENT AUTO 3 % (0-6); Hemoglobin 7.3 g/dL (11.5-16.0); IMMATURE GRAN ABSOLUTE AUTO 0.03 K/mm3 (0.00-0.10); IMMATURE GRAN PERCENT AUTO 0 % (0-1); LYMPHOCYTES ABSOLUTE AUTO 0.69 K/mm3 (0.84-5.20); LYMPHOCYTES PERCENT AUTO 8 % (21-46); MONOCYTES ABSOLUTE AUTO 0.63 K/mm3 (0.16-1.47); MONOCYTES PERCENT AUTO 8 % (4-13); Mean Corpuscular HGB 28.4 pg (26.0-34.0); Mean Corpuscular HGB Conc 31.7 g/dL (31.5-36.5); Mean Corpuscular Volume 90 fL (80-100); NEUTROPHILS ABSOLUTE AUTO 6.78 K/mm3 (1.96-9.15); NEUTROPHILS PERCENT AUTO 80 % (41-73); Platelet Count 335 K/mm3 (150-400); RDW Coefficient Variation 18.4 % (11.7-14.2); RDW Standard Deviation 59.7 fL (35.1-46.3); Red Blood Cell Count 2.57 M/mm3 (3.80-5.20); White Blood Cell Count 8.43 K/mm3 (4.00-11.30)
[2022-02-09 19:31] LABS: Albumin, Blood 2.6 g/dL (3.4-5.0); Albumin/Globulin Ratio 0.5 (0.8-1.8); Bilirubin, Total 0.3 mg/dL (0.1-1.0); Bun/Creatinine Ratio 33.3 (12.0-20.0); Calcium, Blood 9.3 mg/dL (8.5-10.1); Creatinine, Blood 1.89 mg/dL (0.40-1.00); Potassium, Blood 4.6 mmol/L (3.5-5.5); Total Protein, Blood 7.6 g/dL (6.4-8.2)
== END | disposition home or self-care (01) ==
LOC: LAB SHORT 14:50
PROVIDERS: Internal Medicine Rheumatology
DX: R76.8 Other specified abnormal immunological findings in serum (principal)
CPT/HCPCS: 80053; 85025; 85651

== ENCOUNTER → 2022-02-16 | Outpatient (CLI) | payer MEDICARE, OTHER ==
[~2022-02-16] MED LIST changes: +Norco 7.5-3251 EACH PO
== END | disposition home or self-care (01) ==
LOC: LAB SHORT 15:30 → LAB 15:30
DX: R74.01 Elevation of levels of liver transaminase levels (principal)

== ENCOUNTER 2022-03-18 10:07 | Emergency (ER) | payer MEDICARE, OTHER ==
[~2022-03-18] VITALS: Ht 157.5 cm; Wt 47.6 kg
[~2022-03-18 10:07] MED LIST changes: -Norco 7.5-3251 EACH PO
[2022-03-18 11:26] LABS: BASOPHILS ABSOLUTE AUTO 0.05 K/mm3 (0.00-0.23); BASOPHILS PERCENT AUTO 1 % (0-2); EOSINOPHILS ABSOLUTE AUTO 0.09 K/mm3 (0.00-0.68); EOSINOPHILS PERCENT AUTO 1 % (0-6); Hematocrit 22.1 % (33.0-51.0); Hemoglobin 6.6 g/dL (11.5-16.0); IMMATURE GRAN ABSOLUTE AUTO 0.05 K/mm3 (0.00-0.10); IMMATURE GRAN PERCENT AUTO 1 % (0-1); LYMPHOCYTES ABSOLUTE AUTO 0.52 K/mm3 (0.84-5.20); LYMPHOCYTES PERCENT AUTO 6 % (21-46); MONOCYTES ABSOLUTE AUTO 0.52 K/mm3 (0.16-1.47); MONOCYTES PERCENT AUTO 6 % (4-13); Mean Corpuscular HGB 27.4 pg (26.0-34.0); Mean Corpuscular HGB Conc 29.9 g/dL (31.5-36.5); Mean Corpuscular Volume 92 fL (80-100); Mean Platelet Volume 10.1 fL (9.1-12.4); NEUTROPHILS ABSOLUTE AUTO 8.15 K/mm3 (1.96-9.15); NEUTROPHILS PERCENT AUTO 87 % (41-73); Platelet Count 275 K/mm3 (150-400); RDW Coefficient Variation 16.2 % (11.7-14.2); Red Blood Cell Count 2.41 M/mm3 (3.80-5.20); White Blood Cell Count 9.38 K/mm3 (4.00-11.30)
[2022-03-18 11:36] LABS: Albumin, Blood 2.4 g/dL (3.4-5.0); Albumin/Globulin Ratio 0.5 (0.8-1.8); Bilirubin, Total 0.3 mg/dL (0.1-1.0); Bun/Creatinine Ratio 24.3 (12.0-20.0); Calcium, Blood 8.6 mg/dL (8.5-10.1); Creatinine, Blood 2.43 mg/dL (0.40-1.00); Globulin, Blood 4.7 g/dL (2.2-4.0); Potassium, Blood 5.7 mmol/L (3.5-5.5); Total Protein, Blood 7.1 g/dL (6.4-8.2)
[2022-03-18] MEDS ORDERED: Norco 7.5-3251 EACH PO (12:35)
== END 2022-03-18 13:42 | disposition home or self-care (01) ==
LOC: ER 10:07
PROVIDERS: Physician Assistant
DX: F11.23 Opioid dependence with withdrawal (principal); D64.9 Anemia, unspecified; I13.0 Hypertensive heart and chronic kidney disease with heart failure and stage 1 through stage 4 chronic kidney disease, or unspecified chronic kidney disease; E11.22 Type 2 diabetes mellitus with diabetic chronic kidney disease; N18.30 Chronic kidney disease, stage 3 unspecified; I50.30 Unspecified diastolic (congestive) heart failure; E78.5 Hyperlipidemia, unspecified; E03.9 Hypothyroidism, unspecified; F17.210 Nicotine dependence, cigarettes, uncomplicated; Z79.899 Other long term (current) drug therapy; Z95.0 Presence of cardiac pacemaker
CPT/HCPCS: 36415; 80053; 85025; 93005; 93010; A9270

== ENCOUNTER 2022-03-24 15:10 | Inpatient (IN) | payer MEDICARE, OTHER ==
[~2022-03-24] VITALS: Ht 157.5 cm; Wt 49.4 kg
[~2022-03-24 15:10] MED LIST changes: +Norco 7.5-3251 EACH PO
[2022-03-24 16:10] LABS: BASOPHILS ABSOLUTE AUTO 0.05 K/mm3 (0.00-0.23); BASOPHILS PERCENT AUTO 1 % (0-2); EOSINOPHILS ABSOLUTE AUTO 0.11 K/mm3 (0.00-0.68); EOSINOPHILS PERCENT AUTO 1 % (0-6); Hematocrit 24.5 % (33.0-51.0); Hemoglobin 7.5 g/dL (11.5-16.0); IMMATURE GRAN ABSOLUTE AUTO 0.04 K/mm3 (0.00-0.10); IMMATURE GRAN PERCENT AUTO 1 % (0-1); LYMPHOCYTES ABSOLUTE AUTO 0.49 K/mm3 (0.84-5.20); LYMPHOCYTES PERCENT AUTO 6 % (21-46); MONOCYTES ABSOLUTE AUTO 0.83 K/mm3 (0.16-1.47); MONOCYTES PERCENT AUTO 10 % (4-13); Mean Corpuscular HGB 27.4 pg (26.0-34.0); Mean Corpuscular HGB Conc 30.6 g/dL (31.5-36.5); Mean Corpuscular Volume 89 fL (80-100); Mean Platelet Volume 10.3 fL (9.1-12.4); NEUTROPHILS ABSOLUTE AUTO 7.17 K/mm3 (1.96-9.15); NEUTROPHILS PERCENT AUTO 82 % (41-73); Platelet Count 273 K/mm3 (150-400); RDW Coefficient Variation 15.9 % (11.7-14.2); RDW Standard Deviation 51.9 fL (35.1-46.3); Red Blood Cell Count 2.74 M/mm3 (3.80-5.20); White Blood Cell Count 8.69 K/mm3 (4.00-11.30)
[2022-03-24 16:28] LABS: Albumin, Blood 2.4 g/dL (3.4-5.0); Albumin/Globulin Ratio 0.5 (0.8-1.8); Bilirubin, Total 0.3 mg/dL (0.1-1.0); Bun/Creatinine Ratio 24.3 (12.0-20.0); Calcium, Blood 9.2 mg/dL (8.5-10.1); Creatinine, Blood 3.62 mg/dL (0.40-1.00); Globulin, Blood 4.8 g/dL (2.2-4.0); Potassium, Blood 6.6 mmol/L (3.5-5.5); Total Protein, Blood 7.2 g/dL (6.4-8.2)
[2022-03-24 21:15] LABS: Source, Urine Clean Catch
[2022-03-24 21:17] LABS: Appearance, Urine Hazy (Clear); Blood, Urine 1+ (Neg); Color, Urine Yellow (P-Yellow); Glucose Qualitative, Urine Neg (Neg); Ketones, Urine Neg (Neg); Leukocyte Esterase, Urine 3+ (Neg); Nitrite, Urine Neg (Neg); Protein, Urine 3+ (Neg); Specific Gravity, Urine 1.025 (1.003-1.022); Urobilinogen, Urine 1+ (Normal)
[2022-03-24 21:27] LABS: Bilirubin, Urine 1+ (Neg)
[2022-03-24 21:28] LABS: Albumin, Blood 2.3 g/dL (3.4-5.0); Anion Gap 6 mmol/L (6-16); Blood Urea Nitrogen 86 mg/dL (8-24); Bun/Creatinine Ratio 24.4 (12.0-20.0); CO2, Blood 21 mmol/L (21-32); Chloride, Blood 110 mmol/L (98-108); Creatinine, Blood 3.52 mg/dL (0.40-1.00); Glomerular Filtration Rate 13 (60-); Glucose, Blood 51 mg/dL (70-99); Phosphorus, Blood 5.6 mg/dL (2.5-4.9); Potassium, Blood 5.9 mmol/L (3.5-5.5); Sodium, Blood 137 mmol/L (136-145)
[2022-03-24 21:28] LABS: Amorphous Light (0-Heavy); Bacteria Many /hpf; Red Blood Cells, Urine 0-2 /hpf (0-2); Squamous Epithelial Cells Few /hpf (Few); White Blood Cells, Urine 25-50 /hpf (0-5)
[2022-03-25 00:37] LABS: Bun/Creatinine Ratio 25.5 (12.0-20.0); Calcium, Blood 9.4 mg/dL (8.5-10.1); Creatinine, Blood 3.49 mg/dL (0.40-1.00); Potassium, Blood 5.7 mmol/L (3.5-5.5)
--- NOTE | 2022-03-25 05:28 | NUR ---
SHIFT SUMMARY ER ADMIT. ARRIVAL TO PCU AT 2044. PT ALERT AND ORIENTED X4. 60'S PACED HR. ON 1L NC THROUGHOUT THE NIGHT SATS OVER 98%. AFEBRILE. BP HYPERTENSIVE ON ARRIVAL, SYSTOLIC 150'S W/ PO MEDICATION AND PRN HYDRALAZINE. BLOOD SUGARS LOW THROUGHOUT THE NIGHT. CBG OF 114 AT 0512. POTASSIUM 6.6 IN ER, 5.7 AFTER CALCIUM GLUCONATE X2. CHRONIC PAIN IN HANDS, RELIEVED WITH HYDROCODONE. IN BED SLEEPING WITH CALL ALARM AT SIDE, WILL CONITNUE TO MONITOR UNTIL REPORT GIVEN TO ONCOMING RN
[2022-03-25 06:07] LABS: BASOPHILS ABSOLUTE AUTO 0.06 K/mm3 (0.00-0.23); BASOPHILS PERCENT AUTO 1 % (0-2); EOSINOPHILS ABSOLUTE AUTO 0.13 K/mm3 (0.00-0.68); EOSINOPHILS PERCENT AUTO 2 % (0-6); Hematocrit 21.5 % (33.0-51.0); Hemoglobin 6.7 g/dL (11.5-16.0); IMMATURE GRAN ABSOLUTE AUTO 0.03 K/mm3 (0.00-0.10); IMMATURE GRAN PERCENT AUTO 0 % (0-1); LYMPHOCYTES PERCENT AUTO 7 % (21-46); MONOCYTES ABSOLUTE AUTO 0.66 K/mm3 (0.16-1.47); MONOCYTES PERCENT AUTO 9 % (4-13); Mean Corpuscular HGB 27.8 pg (26.0-34.0); Mean Corpuscular HGB Conc 31.2 g/dL (31.5-36.5); Mean Corpuscular Volume 89 fL (80-100); Mean Platelet Volume 10.5 fL (9.1-12.4); NEUTROPHILS ABSOLUTE AUTO 5.66 K/mm3 (1.96-9.15); NEUTROPHILS PERCENT AUTO 80 % (41-73); Platelet Count 202 K/mm3 (150-400); RDW Coefficient Variation 15.9 % (11.7-14.2); RDW Standard Deviation 51.4 fL (35.1-46.3); Red Blood Cell Count 2.41 M/mm3 (3.80-5.20); White Blood Cell Count 7.04 K/mm3 (4.00-11.30)
[2022-03-25 06:29] LABS: Albumin, Blood 2.1 g/dL (3.4-5.0); Anion Gap 5 mmol/L (6-16); Blood Urea Nitrogen 89 mg/dL (8-24); Bun/Creatinine Ratio 26.3 (12.0-20.0); CO2, Blood 21 mmol/L (21-32); Calcium, Blood 8.8 mg/dL (8.5-10.1); Chloride, Blood 110 mmol/L (98-108); Creatinine, Blood 3.39 mg/dL (0.40-1.00); Glomerular Filtration Rate 14 (60-); Glucose, Blood 83 mg/dL (70-99); Phosphorus, Blood 5.2 mg/dL (2.5-4.9); Potassium, Blood 5.9 mmol/L (3.5-5.5); Sodium, Blood 136 mmol/L (136-145)
--- NOTE | 2022-03-25 09:25 | NUR ---
ASSUMED CARE OF PT AT 0700 THIS AM. FSBS NOTED TO BE 36, DR DOWNING AT BEDSIDE, NOTIFIED OF CRITICAL VALUE. AMP OF D50 GIVEN AND ORDERS FOR 5% GTT RECEIVED. PT IS RECEIVING BLOOD TRANSFUSION AT THIS TIME AND TOLERATING WELL. CALL LIGHT IN REACH, WILL CONTINUE TO MONITOR.
[2022-03-25 11:09] LABS: Glucose, Blood 68 mg/dL (70-99)
[2022-03-25 12:13] LABS: Bun/Creatinine Ratio 25.6 (12.0-20.0); Creatinine, Blood 3.52 mg/dL (0.40-1.00); Potassium, Blood 5.6 mmol/L (3.5-5.5)
[2022-03-25 12:17] LABS: Free Thyroxine 0.68 ng/dL (0.70-1.60)
[2022-03-25 12:19] LABS: Triiodothyronine, Free 0.61 pg/mL (2.18-3.98)
[2022-03-25 15:10] LABS: Bun/Creatinine Ratio 25.7 (12.0-20.0); Calcium, Blood 8.1 mg/dL (8.5-10.1); Creatinine, Blood 3.35 mg/dL (0.40-1.00); Potassium, Blood 5.7 mmol/L (3.5-5.5)
--- NOTE | 2022-03-25 15:20 | NUR ---
DR FREIRE CONTACTED WITH PT'S GLUCOSE LEVEL OF 58. NEW ORDERS RECEIVED.
--- NOTE | 2022-03-25 18:02 | NUR ---
PT'S FSBS HAVE REMAINED LOW T/O THE SHIFT ON D5 GTT 150ML/HR. LAST FSBS 69, PT AWAKE AND ALERT, ASYMPTOMATIC. PT REPORTED TO MECHANICAL DRAWING TEACHER THAT SHE HAS HAD SWALLOWING ISSUES PRIOR TO ADMISSION, PT NOW NPO FOR SWALLOW EVAL. 1 UNIT PRBCs TRANSFUSED PER MD ORDERS, PT TOLERATED WELL, NO S/SX OF REACTION NOTED. PLAN OVERNIGHT FOR BMP Q 4 HRS AND FSBS Q1 UNTIL STABILIZED. SEE DOCUMENTED VS AND ASSESSMENT, FSBS APPEARS TO BE TRENDING UP, PT IS MAKING URINE. PT ABLE TO USE CALL LIGHT FOR NEEDS, CALL LIGHT IN REACH, WILL CONTINUE TO MONITOR AND GIVE REPORT TO NOC SHIFT RN.
[2022-03-25 18:59] LABS: Bun/Creatinine Ratio 25.5 (12.0-20.0); Creatinine, Blood 3.29 mg/dL (0.40-1.00); Potassium, Blood 5.5 mmol/L (3.5-5.5)
[2022-03-25 23:00] LABS: Bun/Creatinine Ratio 25.9 (12.0-20.0); Calcium, Blood 7.9 mg/dL (8.5-10.1); Creatinine, Blood 3.21 mg/dL (0.40-1.00); Potassium, Blood 5.3 mmol/L (3.5-5.5)
[2022-03-26 04:22] LABS: BASOPHILS ABSOLUTE AUTO 0.06 K/mm3 (0.00-0.23); BASOPHILS PERCENT AUTO 1 % (0-2); EOSINOPHILS PERCENT AUTO 3 % (0-6); Hematocrit 28.2 % (33.0-51.0); Hemoglobin 8.8 g/dL (11.5-16.0); IMMATURE GRAN ABSOLUTE AUTO 0.04 K/mm3 (0.00-0.10); IMMATURE GRAN PERCENT AUTO 1 % (0-1); LYMPHOCYTES ABSOLUTE AUTO 0.35 K/mm3 (0.84-5.20); LYMPHOCYTES PERCENT AUTO 5 % (21-46); MONOCYTES ABSOLUTE AUTO 0.56 K/mm3 (0.16-1.47); MONOCYTES PERCENT AUTO 9 % (4-13); Mean Corpuscular HGB 27.8 pg (26.0-34.0); Mean Corpuscular HGB Conc 31.2 g/dL (31.5-36.5); Mean Corpuscular Volume 89 fL (80-100); Mean Platelet Volume 10.6 fL (9.1-12.4); NEUTROPHILS ABSOLUTE AUTO 5.34 K/mm3 (1.96-9.15); NEUTROPHILS PERCENT AUTO 82 % (41-73); Platelet Count 188 K/mm3 (150-400); RDW Coefficient Variation 15.7 % (11.7-14.2); Red Blood Cell Count 3.17 M/mm3 (3.80-5.20); White Blood Cell Count 6.55 K/mm3 (4.00-11.30)
[2022-03-26 04:43] LABS: Bun/Creatinine Ratio 26.8 (12.0-20.0); Creatinine, Blood 2.99 mg/dL (0.40-1.00); Magnesium, Blood 1.5 mg/dL (1.6-2.4); Phosphorus, Blood 3.8 mg/dL (2.5-4.9)
--- NOTE | 2022-03-26 05:25 | NUR ---
SHIFT SUMMARY: PT. REMAINED STABLE OVERNIGHT, BG LEVELS WERE LOW AT BEGINNING OF SHIFT SO FLUIDS WERE SWITCHED OUT FROM D5 TO D10 AND PT. HAS HOVERED AROUND 100 EACH CHECK SINCE THE FLUIDS WERE CHANGED. PT. HAS BEEN NSR THROUGHOUT THE NIGHT AND BP HAS BEEN STABLE AND WNL. PT.'S ONLY COMPLAINTS OVERNIGHT WERE RELATED TO PAIN IN HER HANDS WHICH WAS MEDICATED PER EMAR. PT. IS RESTING IN BED COMFORTABLY WITH NO COMPLAINTS AT THIS TIME.
[2022-03-26 07:45] LABS: Bun/Creatinine Ratio 25.8 (12.0-20.0); Calcium, Blood 7.8 mg/dL (8.5-10.1); Creatinine, Blood 2.99 mg/dL (0.40-1.00)
[2022-03-26 12:35] LABS: Bun/Creatinine Ratio 25.2 (12.0-20.0); Calcium, Blood 8.2 mg/dL (8.5-10.1); Creatinine, Blood 2.94 mg/dL (0.40-1.00); Potassium, Blood 4.7 mmol/L (3.5-5.5)
[2022-03-26 16:23] LABS: Bun/Creatinine Ratio 26.5 (12.0-20.0); Calcium, Blood 8.3 mg/dL (8.5-10.1); Creatinine, Blood 2.87 mg/dL (0.40-1.00); Potassium, Blood 4.7 mmol/L (3.5-5.5)
--- NOTE | 2022-03-26 17:57 | NUR ---
PT CONTINUES ON D10 GTT WITH BLOOD SUGARS CONSISTENTLY >100, PT'S MENTATION APPEARS TO BE BETTER THAN YESTERDAY, PT IS MORE AWAKE, ALERT AND TALKATIVE. RIGO LOPEZ PERFORMED THIS AM AND DR BRANDON Mary CARDIOLOGY NOTIFIED. NO YANELIS PLANNED AT THIS TIME. PT IS ALLWOED TO EAT, CONTINUE MONITORING LABS CLOSELY. MAG REPLACED THIS SHIFT. TURN Q 2, PT IS ABLE TO USE CALL LIGHT FOR NEEDS, WILL CONTINUE TO MONITOR AND GIVE REPORT TO NOC SHIFT RN.
--- NOTE | 2022-03-26 23:30 | NUR ---
CALL TO HOSPITALIST RESIDENT DR. LEIGH. PATIENT COMPLAINING OF LOWER ABDOMINAL PAIN AND URGE TO URINATE. PALPATED ABDOMEN AND BLADDER APPEARED TO BE DISTENDED. BLADDER SCAN REVEALED RETENTION OF 523 mL IN THE BLADDER. ORDER RECEIVED FOR PLACEMENT OF NUNEZ CATHETER FOR URINE RETENTION.
[2022-03-27 00:16] LABS: Source, Urine Foley catheter
[2022-03-27 00:19] LABS: Bilirubin, Urine Neg (Neg); Blood, Urine 3+ (Neg); Glucose Qualitative, Urine Neg (Neg); Ketones, Urine Neg (Neg); Leukocyte Esterase, Urine 3+ (Neg); Nitrite, Urine Neg (Neg); Protein, Urine 2+ (Neg); Urobilinogen, Urine NORM (Normal)
[2022-03-27 00:28] LABS: Appearance, Urine Hazy (Clear); Color, Urine Yellow (P-Yellow)
[2022-03-27 00:29] LABS: Red Blood Cells, Urine 0-2 /hpf (0-2); Squamous Epithelial Cells Few /hpf (Few); White Blood Cells, Urine TNTC /hpf (0-5)
[2022-03-27 00:30] LABS: Bacteria Mod /hpf
--- NOTE | 2022-03-27 03:00 | NUR ---
CALL TO HOSPITALIST RESIDENT DR. JAVIER REGARDING PATIENT COMPLAINT OF UPPER ADBDOMINAL PAIN. PT REPORTS 10/10 PAIN, LUQ TO MID-UPPER ABDOMEN / EPIGASTRIC REGION, DESCRIBES IT A CONSTANT ACHE. DENIES BURNING OR STABBING PAIN. PAIN DID NOT LESSEN WITH NORCO 5-325 NOR WITH REPOSITIONING. ORDER RECEIVED FOR IV FAMOTIDINE.
[2022-03-27 03:12] LABS: BASOPHILS ABSOLUTE AUTO 0.02 K/mm3 (0.00-0.23); BASOPHILS PERCENT AUTO 0 % (0-2); EOSINOPHILS ABSOLUTE AUTO 0.03 K/mm3 (0.00-0.68); EOSINOPHILS PERCENT AUTO 0 % (0-6); Hemoglobin 8.2 g/dL (11.5-16.0); IMMATURE GRAN ABSOLUTE AUTO 0.06 K/mm3 (0.00-0.10); IMMATURE GRAN PERCENT AUTO 1 % (0-1); LYMPHOCYTES ABSOLUTE AUTO 0.18 K/mm3 (0.84-5.20); LYMPHOCYTES PERCENT AUTO 2 % (21-46); MONOCYTES ABSOLUTE AUTO 0.75 K/mm3 (0.16-1.47); MONOCYTES PERCENT AUTO 6 % (4-13); Mean Corpuscular HGB 28.2 pg (26.0-34.0); Mean Corpuscular HGB Conc 32.8 g/dL (31.5-36.5); Mean Corpuscular Volume 86 fL (80-100); Mean Platelet Volume 10.9 fL (9.1-12.4); NEUTROPHILS ABSOLUTE AUTO 10.87 K/mm3 (1.96-9.15); NEUTROPHILS PERCENT AUTO 91 % (41-73); Platelet Count 181 K/mm3 (150-400); RDW Coefficient Variation 15.6 % (11.7-14.2); RDW Standard Deviation 49.3 fL (35.1-46.3); Red Blood Cell Count 2.91 M/mm3 (3.80-5.20); White Blood Cell Count 11.91 K/mm3 (4.00-11.30)
[2022-03-27 03:27] LABS: Bun/Creatinine Ratio 27.2 (12.0-20.0); Calcium, Blood 7.8 mg/dL (8.5-10.1); Creatinine, Blood 2.61 mg/dL (0.40-1.00); Magnesium, Blood 1.7 mg/dL (1.6-2.4); Potassium, Blood 4.3 mmol/L (3.5-5.5)
--- NOTE | 2022-03-27 10:21 | NUR ---
ASSUMED CARE OF PT AT 0700 THIS AM. PT C/O MID EPIGASTRIC PAIN AND NAUSEA THIS AM. DR DIAZ AT BEDSIDE TO EVALUATE. PT MEDICATED WITH ZOFRAN PRIOR TO GIVING PO MEDS FOR NAUSEA. PT UNABLE TO TOLERATE WATER OR PO MEDICATIONS, IMMEDIATELY VOMITED THEM BACK UP. DR DIAZ NOTIFIED, NEW ORDERS RECEIVED.
--- NOTE | 2022-03-27 12:21 | NUR ---
NEW ORDERS NOTED. REPORT GIVEN TO LIZ TO ASSUME CARE.
--- NOTE | 2022-03-27 17:09 | NUR ---
Recevied call from Dr Smart. Discussed case and concerns. Pt appears to have developed cardiac vegetation, new development of pancreatitis, would benefit from GI specialist but none available for our hospital. Pt not appropirately responding to questions and stating "I don't know". Arrived to Pt's room and is A&OX2. Reviewed plan of care with Pt including recommendations to transfer to another hospital. Pt states "I don't know". When asked about wishes for CPR and Intubation Pt initially states that she does not want CPR or intubation then states "I don't know". Pt agreeable for this RN to call her daughter to assist with decisions. Called and spoke with Pt's daughter Romi. Provided update and reviewed plan of care. Daughter reports Pt would be agreeable with transfer. Discussed Pt's wishes for CPR and Intubation. Romi reports Pt's are DNR. Continued supportive conversation and answered questions. Placed DNR in [facility] per V/O from Dr Smart. Palliative Care will remain available.
--- NOTE | 2022-03-27 18:47 | NUR ---
PT SUMMARY: TRANSFER OF CARE SINCE 1229 REPORT RECEIVED FROM KYLIE CUELLAR. DR DIAZ WAS NOTIFIED PT KEEPS C/O OF ABD PAIN AND ABD CT SCAN RESULT TO BE REVIEWED. PT HAD 1 EMESIS FOR THE SHIFT AFTER PO METOPROLOL WAS GIVEN PT BLOOD PRESSURE STAYED ABOVE 160'S, IV FENTANYL WAS GIVEN ONCE FOR PAIN BP SYTOLIC WENT DOWN TO 140'S THEN CAME BACK UP AGAIN TO 160'S SO ADDITIONAL IV HYDRALAZINE WAS GIVEN. DR DIAZ DISCUSSED WITH THE PT THE NEED FOR COBRA TRANSFER PT DOESNT SEEM TO UNDERSTAND OR COMPREHEND WHATS GOING ON UNABLE TO ANSWER QUESTIONS CAN ONLY ANSWER CLOSE ENDED QUESTIONS. JIMENEZ FROM PALLIATIVE CARE CAME TO SEE PT WELL, PT WAS THE SAME NOT REALLY ANSWERING MUCH QUESTIONS, DAUGHTER WAS CALLED AND WAS GIVEN UPDATED REGARDING PT'S CURRENT STATUS WHICH ALSO AGREED TO SWITCH PT TO DNR STATUS AND ALSO AGREED TO GET PT [place]. PT NOW AWAITNG FOR BED TO EITHER [facility]. DR CORREA WAS CONSULTED ORDERED ONCE TIME DOSE OF LASIX FOR ASCITES/EDEMA. PT HAS DISTENDED ABD THAT IS TENDER TO PALPATE ALSO PT'S ORBITAL AREA IS EDEMATOUS/PUFFY. D5NS AT 75MLS/HR NOW RUNNING Q2 CBG CHECKS LAST WAS 89. PT WAS ALSO GIVEN ZOFRAN X1 FOR NAUSEA. PT IN BED RESTING AT THIS TIME. WILL REPORT TO NOC SHIFT RN
--- NOTE | 2022-03-27 22:00 | NUR ---
2100 MEDS PATIENT VERY LETHARGIC, UNABLE TO TAKE ORAL MEDS AT THIS TIME. CALL PLACED TO RESIDENT REGARDING IV HEPARIN BOLUS. PHYSICIAN TO PLACE NEW ORDERS.
--- NOTE | 2022-03-28 06:43 | NUR ---
SHIFT SUMMARY PATIENT RESPONSIVE TO VERBAL STIMULI, OPENS EYES AND CAN CONVERSE IN SMALL SENTENCES. ABLE TO ANSWER YES OR NO QUESTIONS MORE APPROPRIATELY. PATIENT IS ORIENTED TO SELF ONLY AT THIS TIME, IS NOT ABLE TO RECALL WHERE WE ARE OR WHAT YEAR IT IS. VSS, PATIENT ON RA WITH O2 SAT >90%. PATIENT HAS SLEPT FOR MAJORITY OF SHIFT. BLOOD GLUCOSE TAKEN Q1, PATIENT GIVEN D50 SYRINGES PER EMAR FOR BLOOD SUGARS LESS THAN 70. NUNEZ IN PLACE DRAINING CLEAR YELLOW URINE TO GRAVITY. AWAITING COBRA TRANSFER TO [facility]. NO OTHER SIGNIFICANT CHANGES, WILL REPORT TO DAY SHIFT RN.
[2022-03-28 07:53] LABS: BASOPHILS ABSOLUTE AUTO 0.02 K/mm3 (0.00-0.23); BASOPHILS PERCENT AUTO 0 % (0-2); EOSINOPHILS ABSOLUTE AUTO 0.05 K/mm3 (0.00-0.68); EOSINOPHILS PERCENT AUTO 1 % (0-6); Hematocrit 22.6 % (33.0-51.0); Hemoglobin 7.6 g/dL (11.5-16.0); IMMATURE GRAN ABSOLUTE AUTO 0.05 K/mm3 (0.00-0.10); IMMATURE GRAN PERCENT AUTO 1 % (0-1); LYMPHOCYTES PERCENT AUTO 2 % (21-46); MONOCYTES ABSOLUTE AUTO 0.55 K/mm3 (0.16-1.47); MONOCYTES PERCENT AUTO 5 % (4-13); Mean Corpuscular HGB 28.5 pg (26.0-34.0); Mean Corpuscular HGB Conc 33.6 g/dL (31.5-36.5); Mean Corpuscular Volume 85 fL (80-100); Mean Platelet Volume 10.8 fL (9.1-12.4); NEUTROPHILS ABSOLUTE AUTO 9.62 K/mm3 (1.96-9.15); NEUTROPHILS PERCENT AUTO 92 % (41-73); NRBC ABSOLUTE 0.02 K/mm3 (0.00-0.02); NRBC Auto 0.2 /100 WBC (0.0-0.2); Platelet Count 153 K/mm3 (150-400); RDW Coefficient Variation 15.6 % (11.7-14.2); RDW Standard Deviation 47.3 fL (35.1-46.3); Red Blood Cell Count 2.67 M/mm3 (3.80-5.20); White Blood Cell Count 10.49 K/mm3 (4.00-11.30)
[2022-03-28 08:13] LABS: Magnesium, Blood 1.7 mg/dL (1.6-2.4)
[2022-03-28 08:14] LABS: Albumin, Blood 1.9 g/dL (3.4-5.0); Anion Gap 9 mmol/L (6-16); Blood Urea Nitrogen 68 mg/dL (8-24); Bun/Creatinine Ratio 26.8 (12.0-20.0); CO2, Blood 19 mmol/L (21-32); Calcium, Blood 7.5 mg/dL (8.5-10.1); Chloride, Blood 98 mmol/L (98-108); Creatinine, Blood 2.54 mg/dL (0.40-1.00); Glomerular Filtration Rate 20 (60-); Glucose, Blood 125 mg/dL (70-99); Phosphorus, Blood 2.8 mg/dL (2.5-4.9); Potassium, Blood 4.4 mmol/L (3.5-5.5); Sodium, Blood 126 mmol/L (136-145)
--- NOTE | 2022-03-28 10:56 | NUR ---
AM NOTES: PT STILL FEELING LETHARGIC WILL RESPOND TO VERBAL STIMULI ANSWERS QUESTIONS APPROPRIATELY AND FOLLOWS COMMAND. VITALS HRR PACED AT 60-70'S, BP SYSTOLIC AT 160'S, SATS ABOVE 90% ON RA, AFEBRILE. PT DENIES ANY ABD PAIN THIS MORNING WAS REPOSITIONED IN BED FOR COMFORT, NO NAUSEA AND EMESIS EVEN AFTER GIVING PO MEDS THIS AM, ZOFRAN IV WAS GIVEN TO PREVENT PT FROM THROWING UP THE MEDS WHICH IS EFFECTIVE. PT'S CBG HAS ALSO BEEN RUNNING LOW AT 57 D5 PUSH WAS GIVEN CALLED DR CORREA AND MADE AWARE ORDER FOR D10 AT 50MLS/HR STARTED. WILL KEEP MONITORING CBG Q1 UNTIL STABLE. PT STILL ON A BED WAITING LIST FOR BRANDT AND TRUMAN. PT RESTING AT THIS TIME, CALL LIGHTS WITHIN REACH WILL CONTINUE TO MONITOR
[2022-03-28 16:48] LABS: Anion Gap 6 mmol/L (6-16); Blood Urea Nitrogen 71 mg/dL (8-24); Bun/Creatinine Ratio 26.6 (12.0-20.0); CO2, Blood 20 mmol/L (21-32); Chloride, Blood 98 mmol/L (98-108); Creatinine, Blood 2.67 mg/dL (0.40-1.00); Glomerular Filtration Rate 18 (60-); Glucose, Blood 85 mg/dL (70-99); Potassium, Blood 4.5 mmol/L (3.5-5.5); Sodium, Blood 124 mmol/L (136-145)
--- NOTE | 2022-03-28 17:53 | NUR ---
PT SUMMARY: SEE AM NOTES: PT MORE ALERT AND TALKING TOWARDS THE END OF THE SHIFT. COULDNT REMEMBER MUCH ABOUT YESTERDAY HAVING DISCUSSION WITH THE PROVIDER AND THE PALLIATIVE CARE NURSE. DAUGHTER CAME IN TO VISIT WAS AT THE BEDSIDE DURING THIS CONVERSATION WITH THE PT. DAUGHTER BROUGHT UP TO THE PT IF SHE STILL WANTS TO GET TRANSFERRED FOR HIGH LEVEL OF CARE PT STATED "WELL I GUESS I DONT WANT TO TRY WITHOUT TRYING." PT KEEPS SAYING SHE WANTS TO SEE HER DOG. DAUGHTER THEN AGREED TO PROCEED WITH TRANSFERRING THE PT. PT REMAINS ON D10 AT 50MLS/HR CBG CHECKS Q2 RANGING 70-90'S PT IS NOW TOLERATING PO ON CLEAR LIQUID DIET NOW NO EMESIS REPORTED FOR THE SHIFT. HAS HAD A HEADACHE 7/10 BY THE END OF THE SHFIT TYLENOL WAS GIVEN AND WAS EFFECTIVE. PT NOW RESTING IN BED, STILL AWAITING FOR BED AVAILABILITY [facility] CALLED BACK POSSIBILITY OF GETTING PT TRANSFERRED WITHIN 24HRS. WILL REPORT TO ONCOMING SHIFT
[2022-03-28 19:34] LABS: SARS-Cov-2 (COVID-19) PCR, MMC NEGATIVE (NEGATIVE)
[2022-03-30 05:10] LABS: COMPLEMENT C3, SERUM 82 mg/dL (82-167); COMPLEMENT C4, SERUM 17 mg/dL (12-38)
== END 2022-03-28 19:10 | disposition short-term general hospital (02) | DRG 682 ==
LOC: ER 15:10 → PCU 18:33
PROVIDERS: Family Medicine; Internal Medicine; Internal Medicine Nephrology; Physician Assistant; ADMIT Hospitalist
DX: N17.9 Acute kidney failure, unspecified (principal); G93.41 Metabolic encephalopathy; E87.1 Hypo-osmolality and hyponatremia; I13.0 Hypertensive heart and chronic kidney disease with heart failure and stage 1 through stage 4 chronic kidney disease, or unspecified chronic kidney disease; I50.22 Chronic systolic (congestive) heart failure; G89.29 Other chronic pain; N18.4 Chronic kidney disease, stage 4 (severe); E87.5 Hyperkalemia; D50.9 Iron deficiency anemia, unspecified; Z95.1 Presence of aortocoronary bypass graft; E16.2 Hypoglycemia, unspecified; D63.1 Anemia in chronic kidney disease; F32.A Depression, unspecified; Z90.49 Acquired absence of other specified parts of digestive tract; F17.210 Nicotine dependence, cigarettes, uncomplicated; E78.5 Hyperlipidemia, unspecified
CPT/HCPCS: 36415; 36430; 51702; 71045; 74018; 74176; 80048; 80053; 80069; 80400; 81001; 82533; 82550; 82570; 82947; 83520; 83605; 83615; 83690; 83735; 84100; 84145; 84156; 84305; 84439; 84443; 84481; 84681; 85025; 85651; 86160; 86850; 86900; 86901; 86923; 87040; 87081; 87086; 92526; 92610; 93005; 93010; 93306; 94760; 94762; 96365; 96366; 96375; 99284-25; A9270; C9113; J0360; J0610; J0690; J0834; J1644; J1650; J1815; J1940; J2185; J2405; J3010; J3370; J3475; J7042; J7050; J7070; P9016; U0004